=== PATIENT | male | born 1970 | race Two or more races ===

== ENCOUNTER 2025-04-28 13:12 | Emergency (ER) | payer MEDICAID, OTHER ==
[~2025-04-28] VITALS: Ht 152.4 cm; Wt 69.6 kg
[2025-04-28 15:34] VITALS: BP 136/83; PULSE 1; RESP 18; TEMP 99.2; O2SAT 96
--- NOTE | 2025-04-28 16:36 | ED.PDOC ---
HPI Comments 55 y/o M, presents to the ED for CC of laceration. Patient states, he was cutting meat x1hr [employer] when he accident cut his right 1st and 2nd distal phalanx with a kitchen knife. Patient has, x2 notable 1cm lacerations to the distal right 1st and 2nd phalanx; bleeding is controlled at this time. Patient denies numbness or tingling to his right upper extremity. No other symptoms or modifying factors are present at this time. Chief Complaint: Laceration Time Seen by MD: 16:20 Reviewed Notes: Nurses Notes, Medications, Allergies Allergies: Coded Allergies: No Known Drug Allergy (Verified Allergy, Unknown, 04/28/25) Home Meds Active Scripts Cefdinir (Cefdinir) 300 Mg Cap, 1 CAP PO BID for 7 Days, #14 CAP Prov:KRISTEN LOPEZ MD 04/28/25 Bacitracin-Polymyxin B (Neosporin 500-22495 Unit/gm) 1 Oin Oin, 1 OIN EX BID for 5 Days, #30 OIN Prov:KRISTEN LOPEZ MD 04/28/25 Mode of Arrival: Ambulatory Severity: Moderate Severity of Laceration: Controlled Bleeding Complexity: Simple Timing: Hours Prehospital treatment: None Laceration Location: Digit #1 (right), Digit #2 (right) Mechanism: Knife Last Tetanus: UTD Laceration Length (cm): 2 Skin Type: Linear Depth of Injury: Skin Tendon Injury: 0% Tender: Mild Discharge: Bloody Erythema: Localized to Wound Edges Associated Signs and Symptoms: None Past Medical History PAST MEDICAL HISTORY: Denies Surgical History: Denies all surgeries Family History Family History: Unknown Social History Smoker: Non-Smoker Alcohol: Denies ETOH Use Drugs: Denies Drug Use Lives In: Home Constitutional: denies: chills, diaphoresis, fatigue, fever, malaise, sweats, weakness, others EENTM: denies: blurred vision, double vision, ear bleeding, ear discharge, ear drainage, ear pain, ear ringing, eye pain, eye redness, hearing loss, mouth pain, mouth swelling, nasal discharge, nose bleeding, nose congestion, nose pain, photophobia, tearing, throat pain, throat swelling, voice changes, others Respiratory: denies: cough, hemoptysis, orthopnea, SOB at rest, shortness of breath, SOB with excertion, stridor, wheezing, others Cardiovascular: denies: chest pain, dizzy spells, diaphoresis, Dyspnea on exertion, edema, irregular heart beat, left arm pain, lightheadedness, palpitations, PND, syncope, others Gastrointestinal: denies: abdomen distended, abdominal pain, blood streaked bowels, constipated, diarrhea, dysphagia, difficulty swallowing, hematemesis, melena, nausea, poor appetite, poor fluid intake, rectal bleeding, rectal pain, vomiting, others Genitourinary: denies: burning, dysuria, flank pain, frequency, hematuria, incontinence, penile discharge, penile sore, pain, testicle pain, testicle swelling, urgency, others Neurological: denies: dizziness, fainting, headache, left sided numbness, left sided weakness, numbness, paresthesia, pre-existing deficit, right sided numbness, right sided weakness, seizure, speech problems, tingling, tremors, weakness, others Musculoskeletal: denies: back pain, gout, joint pain, joint swelling, muscle pain, muscle stiffness, neck pain, others Integumetry: reports: laceration; denies: bruises, change in color, change in hair/nails, dryness, lesions, lumps, rash, wounds, others Allergic/Immunocompromised: denies: Difficulty Healing, Frequent Infections, Hives, Itching, others Hematologic/Lymphatic: denies: anemia, blood clots, easy bleeding, easy brui sing, swollen glands, others Endocrine: denies: excessive hunger, excessive sweating, excessive thirst, ex cessive urination, flushing, intolerance to cold, intolerance to heat, unexplained weight gain, unexplained weight loss, others Psychiatric: denies: anxiety, bipolar disorder, depression, hopeless, panic disorder, schizophrenia, sleepless, suicidal, others All Other Systems: Reviewed and Negative Physical Exam General Appearance: No Apparent Distress HEENT: Normal ENT Inspection, PERRL/EOMI Neck: Full Range of Motion, Non-Tender, Normal, Normal Inspection Respiratory: Chest Non-Tender, Lungs Clear, No Accessory Muscle Use, No Respiratory Distress, Normal Breath Sounds Cardiovascular: No Edema, No JVD, No Murmur, No Gallop, Normal Peripheral Pulses, Regular Rate/Rhythm Breast Exam: Deferred Gastrointestinal: No Organomegaly, Non Tender, No Pulsatile Mass, Normal Bowel Sounds, Soft Genitalia: Deferred Pelvic: Deferred Rectal: Deferred Extremities: No calf tenderness, Normal capillary refill, Normal inspection, Normal range of motion, Non-tender, No pedal edema Musculoskeletal : Location: Right Extremity Location: Finger 2, Thumb Apperance: Limited ROM, Tenderness: Mild, Other (Laceration to index is 2 cm in r volar aspect laceration injury to thumb 1 cm clean and superficial) Neurologic: Alert, dredge mate II-XII nml as Tested, No Motor Deficits, Normal Affect, Normal Mood, No Sensory Deficits Cerebellar Function: Normal Reflexes: Normal Skin: Dry, Normal Color, Warm Peripheral Pulses: 1+ carotid (R), 1+ carotid (L) Lymphatic: No Adenopathy Was a procedure done? Was a procedure done?: No Differential diagnosis Generic Laceration: Laceration (right index and thumb), N/A Differential Diagnosis: N/A X-Ray, Labs, Meds, VS Vital Signs Date Time Temp Pulse Resp B/P (MAP) Pulse Ox O2 Delivery O2 Flow Rate FiO2 04/28/25 15:34 99.2 1 18 136/83 (100) 96 99.2 04/28/25 13:14 98.4 107 16 140/91 96 98.4 Current Medications Medications (Trade) Dose Ordered Sig/Jackie Route Start Time Stop Time Status Last Admin Diphtheria/ Tetanus/Acell Pertussis (Boostrix T-Dap) 0.5 ml ONCE ONCE IM 04/28/25 17:00 04/28/25 17:01 DC 04/28/25 17:10 X-Ray, Labs, Meds, VS Comment Course in the fast track Patient has a laceration to the thumb which is 1 cm laceration wanted to the index finger to nerves cm Both knees around Steri-Strips and dressing on so patient will need a Tdap Time of 1ST Reevaluation: 16:50 Reevaluation 1ST: Unchanged Time of 2ND Reevaluation: 16:47 Reevaluation 2ND: Improved Consultation: PCP Patient Education/Counseling: Diagnosis, Treatment, Prognosis, Need For Follow Up Family Education/Counseling: Diagnosis, Treatment, Prognosis, Need For Follow Up, No Family Present Departure 1 Departure Time of Disposition: 16:47 Impression: Primary Impression: Superficial laceration of thumb Additional Impression: Superficial laceration of finger Disposition: 01 HOME / SELF CARE / HOMELESS Condition: Good Additional Instructions: Keep the laceration clean and dry Keeps Steri-Strips until they fall e-Prescriptions Cefdinir (Cefdinir) 300 Mg Cap 1 CAP PO BID for 7 Days, #14 CAP Prov: KRISTEN LOPEZ MD 04/28/25 Bacitracin-Polymyxin B (Neosporin 500-26091 Unit/gm) 1 Oin Oin 1 OIN EX BID for 5 Days, #30 OIN Prov: KRISTEN LOPEZ MD 04/28/25 Discharged With: Self Critical Care Note Critical Care Time?: No Stability Stability form required: No Heart Score Heart Score: Heart Score Response (Comments) Value History N/A 0 EKG N/A 0 Age 45-64 1 Risk Factors 1 or 2 risk factors 1 Troponin N/A 0 Total 2 I personally scribed for KRISTEN LOPEZ MD ([email or web address]) on 04/28/25 at 16:36. Electronically submitted by Betty Colin ([email or web address]). KRISTEN LOPEZ MD Apr 28, 2025 16:36
[2025-04-28] MEDS ORDERED: BACI1OIN45 EX (16:51)
[2025-04-28] MEDS ORDERED: CEFD300C2 PO (16:51)
[2025-04-28] MEDS: TETANUS-DIPTH-ACEL PERTUSSIS 0.5ML SYR Tdap IM ONE (17:10)
== END 2025-04-28 17:13 | disposition home or self-care (01) ==
LOC: ER 13:12
DX: S61.019A Laceration without foreign body of unspecified thumb without damage to nail, initial encounter (principal); W26.0XXA Contact with knife, initial encounter; Y93.89 Activity, other specified; Y92.000 Kitchen of unspecified non-institutional (private) residence as the place of occurrence of the external cause; Y99.8 Other external cause status
CPT/HCPCS: 90471; 90715